=== PATIENT | female | born 1985 | race Caucasian/White ===

== ENCOUNTER → 2016-11-26 | Outpatient (CLI) | payer BC ==
--- NOTE | 2016-11-26 14:08 | US ---
EXAMINATION TYPE: US OB <= 14 wk fetus DATE OF EXAM: 11/26/2016 12:45 PM COMPARISON: No previous CLINICAL HISTORY: O46.91. Sent by Dr. Renner, patient states no symptoms, 5, para 2, miscarr iage 2 EXAM PERFORMED: Transvaginal (TV) and Transabdominal (TA) EXAM MEASUREMENTS: GESTATIONAL AGE / DATING Physician Established: Not established yet Dates by LMP: Unknown Dates by First Scan: No previous Dates by Current Scan for: (6 weeks/5 days) By gestational sac measurements EDC: 07/17/2017 MATERNAL ANATOMY Uterus: 12.1 x 5.6 x 5.8cm Right Ovary: not seen Left Ovary: 3.2 x 2.7 x 2.8cm Post CDS / Adnexa: wnl Presence of free fluid: no Presence of corpus luteal cyst: 2.0 x 2.0 x1.8cm hypoechoic area - left ovary Presence of subchorionic bleed: no GESTATION / SURVEY No pole or yolk sac seen at this time MSD: 1.8cm (6 weeks/5 days) Date of LMP: Unknown Beta HcG (if available): Not available at time of exam TECHNOLOGIST IMPRESSION: No pole or yolk sac seen at this time, 1.8cm gestational sac measurin g 6 weeks 5 days IMPRESSION: 1. Intrauterine gestational sac may be present. Yolk sac or pole however are not identified. Co uld be early . Correlation with beta-hCG and follow-up is recommended. Differential could in clude blighted ovum. Ectopic is not excluded at this time
== END | disposition home or self-care (01) ==
LOC: RADUSWWP 11:54
PROVIDERS: ATTEND Obstetrics & Gynecology
DX: O46.91 Antepartum hemorrhage, unspecified, first trimester (principal); Z3A.01 Less than 8 weeks gestation of pregnancy
CPT/HCPCS: 76801; 76817; 84702; 86850; 86900; 86901

== ENCOUNTER → 2016-12-02 | Outpatient (CLI) | payer BC ==
--- NOTE | 2016-12-02 18:47 | US ---
EXAMINATION TYPE: US OB <= 14 wk fetus DATE OF EXAM: 12/02/2016 6:20 PM COMPARISON: Prior in PACS CLINICAL HISTORY: O46.91 Bleeding 1st trimester. EXAM PERFORMED: Transvaginal (TV) and Transabdominal (TA) EXAM MEASUREMENTS: GESTATIONAL AGE / DATING Physician Established: Not established Dates by LMP: Unsure Dates by First Scan: (6 weeks/5 days) By gestational sac measurement only EDC: 07/17/2017 Dates by Current Scan for: (6 weeks/ 3 days) By gestational sac measurement only EDC: 07/25/2017 MATERNAL ANATOMY Uterus: 12.8 x 4.4 x 6.5 Right Ovary: 2.9 x 1.7 x 1.9 cm, wnl Left Ovary: 3.7 x 3.0 x 3.5 cm Post CDS / Adnexa: wnl Presence of free fluid: No Presence of corpus luteal cyst: Cystic area again visualized on left ovary measuring 2.0 x 1.8 x 2.1 cm. This area previously measured 2.0 x 2.0 x 1.8 cm on 11/26/2016 Presence of subchorionic bleed: Small hypoechoic area visualized measuring 1.5 x 0.5 x 0.5 cm, possib le subchorionic bleed GESTATION / SURVEY MSD: 1.97 cm (6 weeks/3 days) IUP: No yolk sac or pole visualized on this exam Date of LMP: Patient unsure Beta HcG (if available): Not available at time of exam TECHNOLOGIST IMPRESSION: No pole or yolk sac visualized on this exam. Possible blighted ovum. IMPRESSION: There is an intrauterine gestational sac without evidence of a pole or yolk sac. This appears u nchanged compared to previous exam of 11/26/2016 and is suspicious for blighted ovum. No evidence of e ctopic .
== END | disposition home or self-care (01) ==
LOC: RADUSMAIN 17:50
PROVIDERS: ATTEND Obstetrics & Gynecology
DX: O46.91 Antepartum hemorrhage, unspecified, first trimester (principal); Z3A.01 Less than 8 weeks gestation of pregnancy
CPT/HCPCS: 76801; 76817

== ENCOUNTER → 2016-12-03 | Outpatient (CLI) | payer BC ==
[2016-12-03 11:15] LABS: Basophils % (A) 0 %; CH 31.1; CHCM 33.9; Eosinophils # (A) 0.1 k/uL (0-0.7); Eosinophils % (A) 1 %; HCT 40.7 % (34.0-46.0); HDW 2.48; HGB 13.7 gm/dL (11.4-16.0); Luc # (Auto) 0.12; Luc % (Auto) 2; Lymphocytes # (A) 1.5 k/uL (1.0-4.8); Lymphocytes % (A) 28 %; MCHC 33.6 g/dL (31.0-37.0); MCV 92.1 fL (80.0-100.0); Mean Platelet Volume 7.2; Monocytes # (A) 0.4 k/uL (0-1.0); Monocytes % (A) 7 %; Neutrophils # (A) 3.4 k/uL (1.3-7.7); Neutrophils % (A) 62 %; RBC 4.42 m/uL (3.80-5.40); RDW 12.9 % (11.5-15.5); WBC 5.5 k/uL (3.8-10.6); WBC (Perox) 5.84
== END | disposition home or self-care (01) ==
LOC: LABPAT 10:56
PROVIDERS: ATTEND Obstetrics & Gynecology
DX: Z01.812 Encounter for preprocedural laboratory examination (principal)
CPT/HCPCS: 85025

== ENCOUNTER 2016-12-04 05:48 | Day surgery (SDC) | payer BC ==
--- NOTE | 2016-12-03 12:18 | P.HPOB ---
History of Present Illness H&P Date: 12/03/16 Chief Complaint: Missed This patient is a pleasant 31-year-old 5 para 2 female estimated gestational age 6-1/2 weeks who presented to my office for obstetrical care. Patient some dark red spotting at that time and a transvaginal ultrasound showed a 6-1/2 week gestational sac without a pole or yolk sac. Beta-hCG was 33,800. Patient had a repeat ultrasound yesterday which showed a persistent empty sac. Patient is now requesting suction D&C for treatment. Review of Systems Constitutional: Denies chills, Denies fever Ears, nose, mouth and throat: Denies headache, Denies sore throat Cardiovascular: Denies chest pain, Denies shortness of breath Respiratory: Denies cough Gastrointestinal: Denies abdominal pain, Denies diarrhea, Denies nausea, Denies vomiting Genitourinary: Reports , Denies dysuria, Denies hematuria Menstruation: Reports as per HPI Musculoskeletal: Denies myalgias Integumentary: Denies pruritus, Denies rash Neurological: Denies numbness, Denies weakness Psychiatric: Denies anxiety, Denies depression Endocrine: Denies fatigue, Denies weight change Past Medical History Past Medical History: Thyroid Disorder History of Any Multi-Drug Resistant Organisms: None Reported Past Surgical History: No Surgical Hx Reported Past Anesthesia/Blood Transfusion Reactions: No Reported Reaction Past Psychological History: No Psychological Hx Reported Smoking Status: Former smoker Past Alcohol Use History: Occasional Additional Past Alcohol Use History / Comment(s): quit 9 yrs ago, smoked 1/2 PPD for 10 yrs. Past Drug Use History: None Reported - Past Family History Father Family Medical History: Cancer Medications and Allergies Home Medications Medication Instructions Recorded Confirmed Type Levothyroxine Sodium [Synthroid] 25 mcg PO DAILY 06/19/15 06/19/15 History Pnv with Ca,No.72/Iron/FA 1 tab PO DAILY 06/19/15 06/19/15 History [ Plus Tablet] Allergies Allergy/AdvReac Type Severity Reaction Status Date / Time No Known Allergies Allergy Verified 12/03/16 11:50 Exam - Vital Signs Vital signs: Intake and Output 12/02/16 12/03/16 12/03/16 22:59 06:59 14:59 Other: Weight 87.997 kg Patient Weight 12/04/16 06:59 Weight 87.997 kg - OBG Physical Exam Abdomen: bowel sounds normal, no diffuse tenderness, no bruit present, no guarding noted, no hepatomegaly, no splenomegaly, no mass Vulva: both: normal Vagina: normal moisture, no discharge Cervix: no lesion, no discharge Uterus: enlarged Adnexa: both: normal Results Patient's blood type is Rh+. Beta hCG is 33,800. Assessment and Plan (1) Missed Narrative/Plan: This is a pleasant 31-year-old 5 para 2 female estimated gestational age 6-1/2 weeks with a missed . Patient is requesting suction D&C for treatment. Plan at this time is suction D&C. Patient does understand the surgery and risks including risks of infection, bleeding, possible uterine perforation. All the patient's questions are answered and a written consent is obtained. Status: Acute
[~2016-12-04 05:48] MED LIST: DEXAMETHASONE SOD PHOSPHATE 10 MG/ML 1 ML VIAL IV ONE; HYDROmorphone 1 MG/ML 1 ML SYRINGE IVP PRN; LACTATED RINGERS 1,000 ML IV SCH; MIDAZOLAM 2 MG/2 ML VIAL IV PRN; ONDANSETRON 4 MG/2 ML VIAL IVP ONE; Pre Op ABX Message 1 EACH MISC MISCELLANE ONE; SCOPOLAMINE 1.5MG/72HR PATCH TRANSDERM ONE
[2016-12-04 06:37] VITALS: RESP 16
[2016-12-04] MEDS ORDERED: LIDOCAINE 1% 20 ML VIAL (10MG/ML) FOR IV START INTRADERMA ONE (06:53)
[2016-12-04] MEDS ORDERED: fentaNYL (PF) 50 MCG/ML 2 ML AMP ONE (06:56)
[2016-12-04] MEDS ORDERED: MIDAZOLAM 2 MG/2 ML VIAL ONE (06:56)
[2016-12-04] MEDS ORDERED: LIDOCAINE 1% INJ 10MG/ML (20 ML MDV) ONE (06:56)
[2016-12-04] MEDS ORDERED: KETOROLAC 30 MG/ML 1 ML VIAL ONE (06:56)
--- NOTE | 2016-12-04 07:26 | P.OP ---
Date of Procedure: 12/04/16 Preoperative Diagnosis: Missed 6 weeks. Postoperative Diagnosis: Same Procedure(s) Performed: Suction D&C. Anesthesia: MAC Surgeon: Phong Renner Estimated Blood Loss (ml): 75 Urine output (ml): 50 Pathology: other (Uterine contents.) Condition: stable Disposition: PACU Indications for Procedure: Please see dictated H&P for intimate details of this patient's admission. Brief summary this is a pleasant 31-year-old multigravida patient who is approximately 6-1/2 weeks with known missed . Patient requested suction D&C for treatment. She does understand the surgery and risks including risks of infection, bleeding, possible uterine perforation. All the patient's questions are answered and a written consent is obtained. Operative Findings: Patient had uterine contents consistent with products of conception. Description of Procedure: This patient is taken to the operating room where she is laid in the supine position. She subsequently undergoes general mask anesthesia without incident. With an adequate level of anesthesia she's placed in dorsal lithotomy position. She is a vaginal perineal prep and drape. Semination under anesthesia shows uterus to be mid position slightly enlarged. A weighted speculum was placed in the posterior vagina. I drain the bladder for approximately 50 mL of clear urine. An Allis clamp was placed on the anterior lip of the cervix. Cervix is gently dilated to allow a 9 curved suction curette easily uterine cavity. Suction curettage is done for a generous amount of tissue. With this done a gentle curettage is done with a sharp curet of all 4 quadrants and no residual tissue was noted. A final pass of the suction curet is done. There is minimal bleeding at this point. The Allis clamp was removed. Weighted speculum was removed. All counts are correct 3. There are no complications. Patient's taken recovery room satisfactory condition.
[2016-12-04 07:27] VITALS: TEMP 97.4
[2016-12-04 08:17] VITALS: PULSE 57
[2016-12-04 08:34] VITALS: BP 98/70
== END 2016-12-04 08:53 | disposition home or self-care (01) ==
LOC: OR 05:48
PROVIDERS: ATTEND Obstetrics & Gynecology
DX: O02.1 Missed abortion (principal); Z3A.01 Less than 8 weeks gestation of pregnancy; E07.9 Disorder of thyroid, unspecified; Z79.899 Other long term (current) drug therapy; Z87.891 Personal history of nicotine dependence
CPT/HCPCS: 88305; 59820; J2250; J1100; J2405; J2001; J3010; J1885

== ENCOUNTER → 2018-12-21 | Outpatient (CLI) | payer MEDICAID ==
--- NOTE | 2018-12-21 11:12 | MM ---
Reason for exam: screening (asymptomatic). Baseline mammogram. History: Took hormonal contraceptives beginning at age 15. Physical Findings: Nurse did not find any significant physical abnormalities on exam. MG 3D Screening Mammo W/Cad Bilateral CC and MLO view(s) were taken. The breast tissue is heterogeneously dense. This may lower the sensitivity of mammography. No suspicious abnormality. Right intramammary lymph node. These results were verbally communicated with the patient and result sheet given to the patient on 12/21/18. ASSESSMENT: Negative, BI-RAD 1 RECOMMENDATION: Routine screening mammogram of both breasts at age 38.
[2018-12-21 11:23] LABS: T4, Free (Free Thyroxine) 0.72 ng/dL (0.78-2.19)
== END | disposition home or self-care (01) ==
LOC: RADMAMWWP 09:17
PROVIDERS: ATTEND Obstetrics & Gynecology
DX: Z12.31 Encounter for screening mammogram for malignant neoplasm of breast (principal); E03.9 Hypothyroidism, unspecified
CPT/HCPCS: 36415; 77063; 77067; 84439; 84443; 84479

== ENCOUNTER → 2023-01-25 | Outpatient (CLI) | payer MEDICAID ==
[2023-01-25 16:27] LABS: Chol/HDL Ratio 2.69 Ratio; LDL Cholesterol,Calculated 123.4 mg/dL (0.0-131.0); VLDL Calculation 14.18 mg/dL (5.00-40.00)
[2023-01-26 10:00] LABS: African American GFR (CKD) 103.1 (60.0-200.0); Albumin 4.5 g/dL (3.8-4.9); Albumin/Globulin Ratio 1.66 (1.60-3.17); Anion Gap 14.9 mmol/L (10.00-18.00); BUN/Creat Ratio 16.53 Ratio (12.00-20.00); Blood Urea Nitrogen 13.7 mg/dL (9.0-27.0); Calcium 9.4 mg/dL (8.7-10.3); Carbon Dioxide 20.1 mmol/L (20.0-27.5); Globulin 2.7 g/dL (1.6-3.3); Potassium 4.1 mmol/L (3.5-5.5); Total Bilirubin 0.7 mg/dL (0.30-1.20); Total Protein 7.2 g/dL (6.2-8.2)
== END | disposition home or self-care (01) ==
LOC: LABWHC1 07:48
PROVIDERS: ATTEND Family Medicine
DX: Z00.00 Encounter for general adult medical examination without abnormal findings (principal); E03.8 Other specified hypothyroidism
CPT/HCPCS: 36415; 80053; 80061; 84439; 84443

== ENCOUNTER → 2023-01-27 | Outpatient (CLI) | payer MEDICAID ==
[2023-01-27 11:01] LABS: HCT 39.4 % (37.2-46.3); HGB 13.1 g/dL (12.0-15.0); MCH 30.5 pg (27.0-32.0); MCHC 33.2 g/dL (32.0-37.0); MCV 91.6 fL (80.0-97.0); Mean Platelet Volume 10.1 fL (9.5-12.2); NRBC Per 100 WBC 0 /100 WBCS (0.0-0.0); Platelet Count 314 X 10*3/uL (140-440); RDW 13.5 % (11.5-14.5)
[2023-01-27 11:04] LABS: African American GFR (CKD) 99.8 (60.0-200.0); Albumin 4.4 g/dL (3.8-4.9); Albumin/Globulin Ratio 1.71 (1.60-3.17); Anion Gap 8.6 mmol/L (10.00-18.00); BUN/Creat Ratio 14.44 Ratio (12.00-20.00); Blood Urea Nitrogen 12.3 mg/dL (9.0-27.0); Calcium 9.3 mg/dL (8.7-10.3); Carbon Dioxide 25.5 mmol/L (20.0-27.5); Globulin 2.6 g/dL (1.6-3.3); Non-African American GFR(CKD) 86.1 (60.0-200.0); Potassium 4.2 mmol/L (3.5-5.5); Total Bilirubin 0.3 mg/dL (0.30-1.20)
== END | disposition home or self-care (01) ==
LOC: LABWHC1 07:37
PROVIDERS: ATTEND Family Medicine
DX: Z00.00 Encounter for general adult medical examination without abnormal findings (principal); E03.8 Other specified hypothyroidism
CPT/HCPCS: 36415; 80053; 85027

== ENCOUNTER → 2023-02-08 | Outpatient (CLI) | payer MEDICAID ==
--- NOTE | 2023-02-08 16:01 | CT ---
EXAMINATION TYPE: CT heart w calcium score DATE OF EXAM: 02/08/2023 COMPARISON: None HISTORY: Screening for cardiovascular disorder. 213.9 CT DLP: 51.9 mGycm Automated exposure control for dose reduction was used. CT CALCIUM SCORING Coronary calcium is a marker for plaque (fatty deposits) in a blood vessel or atherosclerosis (harden ing of the arteries). The presence and amount of calcium detected in a coronary artery by the CT sca n, indicates the presence and amount of atherosclerotic plaque. These calcium deposits appear years before the development of heart disease symptoms such as chest pain and shortness of breath. A calcium score is computed for each of the coronary arteries based upon the volume and density of th e calcium deposits. This can be referred to as your calcified plaque burden. It does not correspond directly to the percentage of narrowing in the artery but does correlate with the severity of the un derlying coronary atherosclerosis. PROCEDURE TECHNIQUE - Prospective Gating was used. Slice thickness: 3mm. Density threshold (HU): 130, Pixel threshold: 3, Algorithm: discrete. RESULTS Region: LM Calcium Score ([place]at[place]): 0 Volume (mm3): 0 Mass (g): 0 Region: RCA Calcium Score ([place]): 0 Volume (mm3): 0 Mass (g): 0 Region: LAD Calcium Score ([place]): 0 Volume (mm3): 0 Mass (g): 0 Region: CX Calcium Score ([place]): 0 Volume (mm3): 0 Mass (g): 0 Region: PDA Calcium Score ([place]): 0 Volume (mm3): 0 Mass (g): 0 Total: Calcium Score ([place]atston): 0 Volume (mm3): 0 Mass (g): 0 TOTAL CALCIUM SCORE: 0 IMPRESSION: Calcium Score: 0 Implication: No identifiable plaque. Risk of Coronary Artery Disease: Very low, generally less than 5%. CALCIUM SCORE IMPLICATION RISK OF C ORONARY ARTERY DISEASE 0 No identifiable plaque Very low, generally less than 5% 1-10 Minimal identifiable plaque Very unlikely, less than 10% 11-100 Definite, at least mild atherosclerotic plaque Mild or m inimal coronary narrowings likely 101-400 Definite, at least moderate atherosclerotic plaque Mild coronary ar [place] disease highly likely, significant narrowing possible 401 or Higher Extensive atherosclerotic plaque High lik elihood of at least one significant coronary narrowing
== END | disposition home or self-care (01) ==
LOC: RADCTMAIN 14:46
PROVIDERS: ATTEND Family Medicine
DX: I25.10 Atherosclerotic heart disease of native coronary artery without angina pectoris (principal); R07.9 Chest pain, unspecified
CPT/HCPCS: 75571

== ENCOUNTER → 2023-05-14 | Outpatient (CLI) | payer MEDICAID ==
--- NOTE | 2023-05-17 08:06 | MM ---
Reason for Exam: Screening (asymptomatic). Last mammogram was performed 4 year(s) and 5 month(s) ago. Patient History: Menarche at age 11. First Full-Term at age 19. Hormonal Contraceptives, from age 15 until age 31. Risk Values: Vanessa 5 year model risk: 0.5%. NCI Lifetime model risk: 9.0%. Prior Study Comparison: 12/21/2018 Bilateral Screening Mammogram, [facility]. Tissue Density: The breast tissue is heterogeneously dense. This may lower the sensitivity of mammography. Findings: Analyzed By CAD. There is no suspicious group of microcalcifications or new suspicious mass in either breast. Overall Assessment: Negative, BI-RAD 1 Management: Screening Mammogram of both breasts in [address] [facility] will attempt to contact patient to return for supplemental views and ultrasound if indicated. Patient should continue monthly self-breast exams. A clinical breast exam by your physician is recommended on an annual basis. This exam should not preclude additional follow-up of suspicious palpable abnormalities. Note on Vanessa scores and lifetime risk: 1. A Vanessa score greater than 3% is considered moderate risk. If this is the case, consider specialist referral to assess eligibility for a risk reducing agent. 2. If overall lifetime risk for the development of breast cancer is 20% or higher, the patient may qualify for future screening with alternating mammogram and breast MRI. Electronically signed and approved by: David Hughes DO
== END | disposition home or self-care (01) ==
LOC: RADMAMWWP 06:52
PROVIDERS: ATTEND Obstetrics & Gynecology
DX: Z12.31 Encounter for screening mammogram for malignant neoplasm of breast (principal)
CPT/HCPCS: 77063; 77067

== ENCOUNTER → 2024-01-28 | Outpatient (CLI) | payer MEDICAID ==
[2024-01-28 16:31] LABS: HCT 40.2 % (37.2-46.3); HGB 13.4 g/dL (12.0-15.0); MCH 30.5 pg (27.0-32.0); MCHC 33.3 g/dL (32.0-37.0); MCV 91.6 FL (80.0-97.0); Mean Platelet Volume 10.6 FL (9.5-12.2); NRBC Per 100 WBC 0 X 10*3/uL (0.00-0.01); Platelet Count 323 X 10*3/uL (140-440); RBC 4.39 X 10*6/uL (4.10-5.20); RDW 13.4 % (11.5-14.5); WBC 4.41 X 10*3/uL (4.50-10.00)
[2024-01-28 16:50] LABS: LDL Cholesterol,Calculated 131.6 mg/dL (0.0-131.0); T4, Free (Free Thyroxine) 0.92 ng/dL (0.80-1.80); VLDL Calculation 17.26 mg/dL (5.00-40.00)
[2024-01-28 16:51] LABS: ALT 16 U/L (8-44); AST 19 U/L (13-35); Albumin 4.5 g/dL (3.8-4.9); Albumin/Globulin Ratio 1.55 Ratio (1.60-3.17); Alkaline Phosphatase 47 U/L (41-126); BUN/Creat Ratio 13.22 Ratio (12.00-20.00); Blood Urea Nitrogen 11.9 mg/dL (9.0-27.0); Carbon Dioxide 22.9 mmol/L (21.6-31.8); Chloride 103 mmol/L (96-109); Globulin 2.9 g/dL (1.6-3.3); Glucose 104 mg/dL (70-110); Potassium 4.5 mmol/L (3.5-5.5); Sodium 136 mmol/L (135-145); Total Bilirubin 0.3 mg/dL (0.3-1.2); Total Protein 7.4 g/dL (6.2-8.2)
== END | disposition home or self-care (01) ==
LOC: LABWHC1 07:38
PROVIDERS: ATTEND Family Medicine
DX: Z00.00 Encounter for general adult medical examination without abnormal findings (principal); E03.8 Other specified hypothyroidism
CPT/HCPCS: 36415; 80053; 80061; 84439; 84443; 84481; 85027

== ENCOUNTER → 2024-06-05 | Outpatient (CLI) | payer MEDICAID ==
--- NOTE | 2024-06-14 11:43 | MM ---
Reason for Exam: Screening (asymptomatic). Last screening mammogram was performed 12 month(s) ago. Patient History: Menarche at age 11. First Full-Term at age 19. Hormonal Contraceptives, from age 15 until age 31. Last menstrual period: 05/15/2024 Risk Values: Vanessa 5 year model risk: 0.5%. NCI Lifetime model risk: 9.0%. Prior Study Comparison: 12/21/2018 Bilateral Screening Mammogram, [facility]. 05/14/2023 Bilateral MG 3D screening mammo w/cad, [facility]. Tissue Density: The breasts are heterogeneously dense, which may obscure small masses. Findings: Analyzed By CAD. Right breast: There is no suspicious group of microcalcifications or new suspicious mass. Left breast: There is no suspicious group of microcalcifications or new suspicious mass. Overall Assessment: Negative, BI-RAD 1 Management: Screening Mammogram of both breasts in [address] [facility] will attempt to contact patient to return for supplemental views and ultrasound if indicated. Patient should continue monthly self-breast exams. A clinical breast exam by your physician is recommended on an annual basis. This exam should not preclude additional follow-up of suspicious palpable abnormalities. Note on Vanessa scores and lifetime risk: 1. A Vanessa score greater than 3% is considered moderate risk. If this is the case, consider specialist referral to assess eligibility for a risk reducing agent. 2. If overall lifetime risk for the development of breast cancer is 20% or higher, the patient may qualify for future screening with alternating mammogram and breast MRI. Electronically signed and approved by: David Hughes DO
== END | disposition home or self-care (01) ==
LOC: RADMAMWWP 12:40
PROVIDERS: ATTEND Obstetrics & Gynecology Obstetrics
DX: Z12.31 Encounter for screening mammogram for malignant neoplasm of breast
CPT/HCPCS: 77063; 77067

== ENCOUNTER → 2025-01-25 | Outpatient (CLI) | payer MEDICAID ==
[2025-01-25 10:20] LABS: HCT 40.1 % (37.2-46.3); HGB 13.4 g/dL (12.0-15.0); MCH 29.5 pg (27.0-32.0); MCHC 33.4 g/dL (32.0-37.0); MCV 88.1 FL (80.0-97.0); Mean Platelet Volume 10.2 FL (9.5-12.2); NRBC Per 100 WBC 0 X 10*3/uL (0.00-0.01); Platelet Count 332 X 10*3/uL (140-440); RBC 4.55 X 10*6/uL (4.10-5.20); RDW 13.3 % (11.5-14.5); WBC 5.97 X 10*3/uL (4.50-10.00)
[2025-01-25 10:45] LABS: ALT 17 U/L (8-44); AST 15 U/L (13-35); Albumin 4.2 g/dL (3.8-4.9); Albumin/Globulin Ratio 1.45 Ratio (1.60-3.17); Alkaline Phosphatase 52 U/L (41-126); Blood Urea Nitrogen 11.6 mg/dL (9.0-27.0); Calcium 9.4 mg/dL (8.7-10.3); Carbon Dioxide 24.2 mmol/L (21.6-31.8); Chloride 103 mmol/L (96-109); Chol/HDL Ratio 3.71 Ratio; Globulin 2.9 g/dL (1.6-3.3); Glucose 97 mg/dL (70-110); LDL Cholesterol,Calculated 136.8 mg/dL (0.0-131.0); Potassium 4.2 mmol/L (3.5-5.5); Sodium 136 mmol/L (135-145); Total Bilirubin 0.4 mg/dL (0.3-1.2); Total Protein 7.1 g/dL (6.2-8.2)
[2025-01-25 10:46] LABS: T4, Free (Free Thyroxine) 1.07 ng/dL (0.80-1.80)
== END | disposition home or self-care (01) ==
LOC: LABWHC1 07:11
PROVIDERS: ATTEND Family Medicine
DX: Z00.00 Encounter for general adult medical examination without abnormal findings (principal); E03.8 Other specified hypothyroidism
CPT/HCPCS: 36415; 80053; 80061; 84439; 84443; 84481; 85027

== ENCOUNTER → 2025-04-25 | Outpatient (CLI) | payer MEDICAID ==
[2025-04-25 10:46] LABS: HCT 35.3 % (37.2-46.3); HGB 11.8 g/dL (12.0-15.0); MCH 29.8 pg (27.0-32.0); MCHC 33.4 g/dL (32.0-37.0); MCV 89.1 FL (80.0-97.0); NRBC Per 100 WBC 0 X 10*3/uL (0.00-0.01); Platelet Count 290 X 10*3/uL (140-440); RBC 3.96 X 10*6/uL (4.10-5.20); RDW 13.7 % (11.5-14.5); WBC 4.67 X 10*3/uL (4.50-10.00)
== END | disposition home or self-care (01) ==
LOC: LABWHC1 07:28
PROVIDERS: ATTEND Obstetrics & Gynecology Obstetrics
DX: N93.8 Other specified abnormal uterine and vaginal bleeding (principal)
CPT/HCPCS: 36415; 85027

== ENCOUNTER → 2025-05-09 | Outpatient (CLI) | payer MEDICAID ==
[2025-05-09 10:22] LABS: Basophils # (A) 0.02 X 10*3/uL (0.00-0.10); Basophils % (A) 0.4 %; Eosinophils # (A) 0.16 X 10*3/uL (0.04-0.35); Eosinophils % (A) 3.5 %; HCT 27.6 % (37.2-46.3); HGB 8.9 g/dL (12.0-15.0); Immature Grans, Automated 0.40 %; Lymphocytes # (A) 1.67 X 10*3/uL (0.90-5.00); Lymphocytes % (A) 36.9 %; MCH 28.9 pg (27.0-32.0); MCHC 32.2 g/dL (32.0-37.0); MCV 89.6 FL (80.0-97.0); Monocytes # (A) 0.43 X 10*3/uL (0.20-1.00); Monocytes % (A) 9.5 %; NRBC Per 100 WBC 0 X 10*3/uL (0.00-0.01); Neutrophils # (A) 2.23 X 10*3/uL (1.80-7.70); Neutrophils % (A) 49.3 %; Platelet Count 365 X 10*3/uL (140-440); RBC 3.08 X 10*6/uL (4.10-5.20); RDW 13.6 % (11.5-14.5); WBC 4.53 X 10*3/uL (4.50-10.00)
== END | disposition home or self-care (01) ==
LOC: LABPAT 07:03
PROVIDERS: ATTEND Obstetrics & Gynecology Obstetrics
DX: Z01.812 Encounter for preprocedural laboratory examination (principal)
CPT/HCPCS: 36415; 85025

== ENCOUNTER 2025-05-11 06:47 | Day surgery (SDC) | payer MEDICAID ==
[2025-05-09 16:31] VITALS: BMI 32.3
[2025-05-11] MEDS ORDERED: fentaNYL (PF) 50 MCG/ML 2 ML AMP IVP PRN (07:05)
[2025-05-11] MEDS ORDERED: MIDAZOLAM 2 MG/2 ML VIAL IV PRN (07:05)
[2025-05-11] MEDS ORDERED: HYDROmorphone 0.5 MG/0.5 ML SYRINGE IVP PRN (07:05)
[2025-05-11] MEDS ORDERED: LIDOCAINE 1% (10MG/ML) FOR IV START INTRADERMA PRN (07:05)
[2025-05-11] MEDS: IV FLUID CONTINUATION 1,000 ML IV ONE ×3 (07:29→11:00)
[2025-05-11] MEDS: DEXAMETHASONE SOD PHOSPHATE 4 MG/ML 1 ML VIAL IV ONE (07:34)
[2025-05-11] MEDS: ONDANSETRON 4 MG/2 ML VIAL IVP ONE (07:34)
[2025-05-11] MEDS ORDERED: LIDOCAINE 1% INJ 10MG/ML (20 ML MDV) ONE (08:17)
[2025-05-11] MEDS ORDERED: MIDAZOLAM 2 MG/2 ML VIAL ONE (08:17)
[2025-05-11] MEDS ORDERED: PROPOFOL 10 MG/ML 20 ML VIAL IV ONE (08:17)
[2025-05-11] MEDS ORDERED: fentaNYL (PF) 50 MCG/ML 2 ML AMP ONE (08:17)
[2025-05-11] MEDS ORDERED: KETOROLAC 15 MG/ML 1 ML VIAL ONE (08:17)
[2025-05-11] MEDS: SILVER NITRATE APPLICATOR 1 EACH STICK..EA. TOPICAL ONE (08:44)
--- NOTE | 2025-05-11 08:56 | P.OP ---
Date of Procedure: 05/11/25 Preoperative Diagnosis: Heavy menstrual bleeding Postoperative Diagnosis: Same Procedure(s) Performed: Hysteroscopy, dilation and curettage, endometrial ablation, NovaSure Anesthesia: MAC Surgeon: Vika Daley Estimated Blood Loss (ml): 10 IV fluids (ml): 800 Urine output (ml): 200 Pathology: other (Endometrial curettings) Condition: stable Disposition: PACU Indications for Procedure: Heavy menstrual bleeding Operative Findings: Proliferative thickened endometrium is appreciated, specimen sent to pathology Description of Procedure: Patient is taken back to the operating suite where general anesthesia was obtained without difficulty by the anesthesia department. She is prepped and draped in the normal sterile fashion in the dorsal lithotomy position. A red rubber catheter was used to drain the bladder of clear yellow urine. A weighted speculum was placed in the posterior vaginal vault, the anterior lip of the cervix was visualized and grasped with a single-tooth tenaculum. The endocervical canal was then serially dilated. Hysteroscope was placed through the cervix and toward the endometrial cavity and intact cavity with proliferative endometrium is noted. Hysteroscope was removed and a sharp curettage was then performed. The specimen is then sent to pathology for analysis. At this time the NovaSure was opened and set to the appropriate measurements for the patient's uterine cavity 6.5 in length width of 4.0. After cavity assessment is completed and passed a cycle length of 1 minute 15 seconds at a power of 143 is allowed to complete. After the cycle was complete the device was removed without difficulty intact. The single-tooth tenaculum was taken off of the anterior lip of the cervix, hemostasis is appreciated after silver nitrate application. All counts were noted to be correct x 2. Patient tolerated procedure well and was taken the recovery awake in stable condition
[2025-05-11] MEDS: LACTATED RINGERS 1,000 ML IV SCH (10:05)
[2025-05-11 10:11] LABS: Glucose,Whole Blood 95 mg/dL (70-110)
[2025-05-11 11:00] LABS: HCT 24.3 % (37.2-46.3); HGB 8.1 g/dL (12.0-15.0); MCH 29.8 pg (27.0-32.0); MCHC 33.3 g/dL (32.0-37.0); MCV 89.3 fL (80.0-97.0); Platelet Count 299 10*3/uL (140-440); RBC 2.72 10*6/uL (4.10-5.20); RDW 13.4 % (11.5-14.5); WBC 4.16 10*3/uL (4.50-10.00)
[2025-05-11] MEDS: IBUPROFEN 600 MG TAB PO PRN (13:01)
[2025-05-11 13:35] VITALS: TEMP 97.9
[2025-05-11 14:51] VITALS: RESP 16
[2025-05-11 14:54] VITALS: PULSE 63
[2025-05-11 14:57] VITALS: BP 109/71
[2025-05-11] MEDS: Pre Op ABX Message 1 EACH MISC MISCELLANE ONE (16:58)
[2025-05-11] MEDS: ACETAMINOPHEN TAB 500 MG TAB PO PRN (18:16)
== END 2025-05-11 18:49 | disposition home or self-care (01) ==
LOC: OR 06:47 → 4SSUR 08:45 → OR 18:49
PROVIDERS: ATTEND Obstetrics & Gynecology Obstetrics
DX: N84.0 Polyp of corpus uteri (principal); N80.00 Endometriosis of the uterus, unspecified; E07.9 Disorder of thyroid, unspecified; Z79.890 Hormone replacement therapy
CPT/HCPCS: 81025; 86900; 86901; 88305; 85027; 86850; 58563; J2250; J1100; J2405; J2003; J3010; J1885; J2704